=== PATIENT | female | born 1975 | race Caucasian/White ===

== ENCOUNTER 2018-09-17 08:15 | Emergency (ER) | payer MEDICARE, MEDICAID ==
[~2018-09-17] VITALS: Ht 167.6 cm; Wt 93.6 kg
[~2018-09-17 08:15] MED LIST: ATOR20TA66 PO; BACL10TA PO; CARB1TAB42 PO; FENO134C PO; GABA300S; HYDR-4353 PO; LORA1TAB PO; LOSA25TA96 PO; LURA120T PO; LURA40TA3 PO; METF500T PO; PRAZ2CAP2 PO; TRAZ-219 PO
[2018-09-17] MEDS ORDERED: metroNIDAZOLE-Flagyl 500mg/NS 100 ML IV STA (09:26)
[2018-09-17] MEDS ORDERED: dexamethasone sod phosphate 10mg/ml inj IV STA (09:26)
[2018-09-17] MEDS ORDERED: clindamycin-Cleocin 900mg/D5W 50 ML IV ONE (09:30)
[2018-09-17] MEDS ORDERED: normal saline 1000ML IV soln IV ONE (09:30)
[2018-09-17 09:57] LABS: BASOPHILS # (AUTO) 0.1 X10'3 (0-0.2); BASOPHILS % (AUTO) 0.7 % (0-1); EOSINOPHILS # (AUTO) 0.1 X10'3 (0-0.9); EOSINOPHILS % (AUTO) 0.4 % (0-6); HEMATOCRIT 51.8 % (35.0-45.0); HEMOGLOBIN 17.3 g/dl (12.0-16.0); LYMPHOCYTES # (AUTO) 2.2 X10'3 (1.1-4.8); LYMPHOCYTES % (AUTO) 14.8 % (21-51); MEAN CORPUSCULAR HEMOGLOBIN 29.8 PG (27.0-31.0); MEAN CORPUSCULAR HGB CONC 33.5 g/dL (33.0-36.5); MEAN CORPUSCULAR VOLUME 88.9 FL (78-98); MEAN PLATELET VOLUME 8.1 FL (7.4-10.4); MONOCYTES # (AUTO) 1.1 X10'3 (0-0.9); MONOCYTES % (AUTO) 7.5 % (2-12); NEUTROPHILS # (AUTO) 11.4 X10'3 (1.8-7.7); NEUTROPHILS % (AUTO) 76.6 % (42-75); PLATELET COUNT 231 X10'3 (140-440); RED BLOOD COUNT 5.83 X10'6 (4.20-5.60); RED CELL DISTRIBUTION WIDTH 13.7 % (11.5-14.5); WHITE BLOOD COUNT 14.9 X10'3 (4.5-11.0)
[2018-09-17 10:07] LABS: ALANINE AMINOTRANSFERASE 8 U/L (12-78); ALBUMIN 4.2 G/DL (3.4-5.0); ALBUMIN/GLOBULIN RATIO 1.1 (1.1-1.5); ALKALINE PHOSPHATASE 122 IU/L (46-116); ANION GAP 14 (8-16); ASPARTATE AMINO TRANSFERASE 10 U/L (10-37); BILIRUBIN,TOTAL 0.6 MG/DL (0.1-1.0); BLOOD UREA NITROGEN 10 MG/DL (7-18); BUN/CREATININE RATIO 13.9 (6.6-38.0); CALCIUM 9.7 MG/DL (8.5-10.1); CHLORIDE 99 MMOL/L (99-107); CREATININE 0.72 MG/DL (0.40-0.90); GLUCOSE 287 MG/DL (70-104); MAGNESIUM 1.9 MG/DL (1.5-2.4); SODIUM 135 MMOL/L (135-145); TOTAL CARBON DIOXIDE 22.5 MMOL/L (24-32); TOTAL PROTEIN 8.1 G/DL (6.4-8.2); eGFR 88 ML/MIN
[2018-09-17] MEDS ORDERED: iohexol 300mg/ml 100ml inj. ONE (10:13)
[2018-09-17 10:34] LABS: INR 0.9 INR; PARTIAL THROMBOPLASTIN TIME 28 SECONDS (22-32); PROTHROMBIN TIME 9.4 SECONDS (9.0-12.0)
[2018-09-17] MEDS ORDERED: morphine 4 MG/ML inj SYRINge IV ONE (11:05)
[2018-09-17] MEDS ORDERED: ondansetron/PF 4mg/2ml inj IV ONE (11:05)
[2018-09-17 11:46] LABS: URINE HCG NEGATIVE (NEG)
--- NOTE | 2018-09-17 12:09 | NUR ---
CT DISC REQUESTED FOR TRANSFER
[2018-09-17 12:16] VITALS: BP 173/93
== END 2018-09-17 13:04 | disposition short-term general hospital (02) ==
LOC: ER 08:16
DX: K04.7 Periapical abscess without sinus (principal); L03.211 Cellulitis of face; R59.1 Generalized enlarged lymph nodes; E11.65 Type 2 diabetes mellitus with hyperglycemia; G20 Parkinson's disease; E78.00 Pure hypercholesterolemia, unspecified; I10 Essential (primary) hypertension; Z79.4 Long term (current) use of insulin; Z91.14 Patient's other noncompliance with medication regimen; G89.29 Other chronic pain; Z79.899 Other long term (current) drug therapy
CPT/HCPCS: 36415; 70491; 80053; 81025; 83605; 83735; 84145; 85025; 85610; 85730; 87040; 96365; 96367; 96375; 99285; J1100; J2270; J2405; J3490; J7030; Q9967

== ENCOUNTER 2018-11-10 07:55 | Emergency (ER) | payer MEDICARE, MEDICAID ==
[~2018-11-10] VITALS: Ht 167.6 cm; Wt 95.5 kg
[2018-11-10] MEDS ORDERED: HYDR-4353 PO (08:37)
[2018-11-10] MEDS ORDERED: HYDROcodone/acetaminophen 10/325mg tab PO ONE (08:40)
[2018-11-10 08:50] VITALS: BP 136/96
== END 2018-11-10 08:52 | disposition home or self-care (01) ==
LOC: ER 07:55
DX: S60.212A Contusion of left wrist, initial encounter (principal); I10 Essential (primary) hypertension; E11.9 Type 2 diabetes mellitus without complications; G89.29 Other chronic pain; F17.200 Nicotine dependence, unspecified, uncomplicated; F12.90 Cannabis use, unspecified, uncomplicated; Z79.84 Long term (current) use of oral hypoglycemic drugs; Z79.899 Other long term (current) drug therapy; X58.XXXA Exposure to other specified factors, initial encounter; Y93.89 Activity, other specified; Y92.89 Other specified places as the place of occurrence of the external cause; Y99.8 Other external cause status
CPT/HCPCS: 29125; 73110; 99283

== ENCOUNTER 2019-01-13 09:23 | Emergency (ER) | payer MEDICARE, MEDICAID ==
[~2019-01-13] VITALS: Ht 167.6 cm; Wt 90.3 kg
[~2019-01-13 09:23] MED LIST changes: +MINO100T PO
[2019-01-13 09:28] VITALS: BP 163/76
[2019-01-13] MEDS ORDERED: CYCL-1 PO (10:12)
== END 2019-01-13 10:25 | disposition home or self-care (01) ==
LOC: ER 09:23
DX: M79.602 Pain in left arm (principal); M54.2 Cervicalgia; M54.9 Dorsalgia, unspecified; G89.29 Other chronic pain; G20 Parkinson's disease; I10 Essential (primary) hypertension; E11.9 Type 2 diabetes mellitus without complications; F12.90 Cannabis use, unspecified, uncomplicated; Z79.84 Long term (current) use of oral hypoglycemic drugs; Z79.899 Other long term (current) drug therapy
CPT/HCPCS: 99283

== ENCOUNTER 2019-04-05 08:07 | Emergency (ER) | payer MEDICARE, MEDICAID ==
[~2019-04-05] VITALS: Ht 167.6 cm; Wt 89.9 kg
[~2019-04-05 08:07] MED LIST changes: +CYCL-1 PO
[2019-04-05] MEDS ORDERED: LOSA25TA96 PO (08:52)
[2019-04-05 09:05] VITALS: BP 153/70
== END 2019-04-05 09:07 | disposition home or self-care (01) ==
LOC: ER 08:07
DX: N61.1 Abscess of the breast and nipple (principal); I10 Essential (primary) hypertension; G20 Parkinson's disease; E11.9 Type 2 diabetes mellitus without complications; G89.29 Other chronic pain; F31.9 Bipolar disorder, unspecified; F17.200 Nicotine dependence, unspecified, uncomplicated; F12.90 Cannabis use, unspecified, uncomplicated; Z79.84 Long term (current) use of oral hypoglycemic drugs; Z79.899 Other long term (current) drug therapy
CPT/HCPCS: 99283

== ENCOUNTER 2020-05-05 07:48 | Emergency (ER) | payer MEDICARE, MEDICAID ==
[~2020-05-05] VITALS: Ht 167.6 cm; Wt 92.4 kg
[~2020-05-05 07:48] MED LIST changes: -TRAZ-219 PO; +TRAZ-256 PO
[2020-05-05] MEDS ORDERED: cyclobenzaprine 10mg tablet PO ONE (09:25)
[2020-05-05] MEDS ORDERED: HYDROcodone/acetaminophen 5mg/325mg tablet PO ONE (09:25)
[2020-05-05] MEDS ORDERED: ketorolac trometh inj. 60 MG/2 ML VIAL IM ONE (09:25)
--- NOTE | 2020-05-05 09:25 | NUR ---
Pt's mother, Shefali Estrada'nai cell phone is [phone]
[2020-05-05 10:19] VITALS: BP 117/73
[2020-05-05] MEDS ORDERED: CYCL-1 PO (10:35)
== END 2020-05-05 10:44 | disposition home or self-care (01) ==
LOC: ER 07:49
DX: M54.9 Dorsalgia, unspecified (principal); G20 Parkinson's disease; I10 Essential (primary) hypertension; J45.909 Unspecified asthma, uncomplicated; E11.9 Type 2 diabetes mellitus without complications; F31.9 Bipolar disorder, unspecified; G89.29 Other chronic pain; F17.200 Nicotine dependence, unspecified, uncomplicated; Z79.899 Other long term (current) drug therapy; W18.39XA Other fall on same level, initial encounter; Y93.89 Activity, other specified; Y92.89 Other specified places as the place of occurrence of the external cause; Y99.8 Other external cause status
CPT/HCPCS: 72070; 96372; 99284; J1885

== ENCOUNTER 2020-05-24 10:14 | Emergency (ER) | payer MEDICARE, MEDICAID ==
[~2020-05-24] VITALS: Ht 167.6 cm; Wt 92.2 kg
[2020-05-24] MEDS ORDERED: CEPH250T PO (11:05)
[2020-05-24] MEDS ORDERED: BACDS PO (11:05)
== END 2020-05-24 11:22 | disposition home or self-care (01) ==
LOC: ER 10:15
DX: L02.31 Cutaneous abscess of buttock (principal); I10 Essential (primary) hypertension; J45.909 Unspecified asthma, uncomplicated; E11.9 Type 2 diabetes mellitus without complications; G89.29 Other chronic pain; Z88.6 Allergy status to analgesic agent; Z79.899 Other long term (current) drug therapy
CPT/HCPCS: 99283

== ENCOUNTER 2021-06-07 09:25 | Emergency (ER) | payer MEDICARE, MEDICAID ==
[~2021-06-07] VITALS: Ht 167.6 cm; Wt 85.2 kg
[2021-06-07 09:43] VITALS: BP 132/84
[2021-06-07] MEDS ORDERED: LIDOcaine 1% W/epiNEPHrine 1:200,000 10ml vial IJ ONE (14:05)
[2021-06-07] MEDS ORDERED: LIDOcaine 1% W/epiNEPHrine 1:100,000 20ml vial SQ ONE (14:20)
[2021-06-07] MEDS ORDERED: CIPR-208 PO (14:50)
[2021-06-07] MEDS ORDERED: METR-159 PO (14:50)
[2021-06-07] MEDS ORDERED: HYDR-3972 PO (14:50)
== END 2021-06-07 15:48 | disposition home or self-care (01) ==
LOC: ER 09:25
DX: L02.31 Cutaneous abscess of buttock (principal); I10 Essential (primary) hypertension; J45.909 Unspecified asthma, uncomplicated; E11.9 Type 2 diabetes mellitus without complications; G89.29 Other chronic pain; F31.9 Bipolar disorder, unspecified; Z88.6 Allergy status to analgesic agent; Z79.899 Other long term (current) drug therapy
CPT/HCPCS: 10060; 99283

== ENCOUNTER 2021-06-17 13:11 | Emergency (ER) | payer MEDICARE, MEDICAID ==
[~2021-06-17 13:11] MED LIST changes: +CIPR-208 PO; +METR-159 PO
== END 2021-06-17 15:00 | disposition left against medical advice (07) ==
LOC: ER 13:12
DX: L02.91 Cutaneous abscess, unspecified (principal); Z53.21 Procedure and treatment not carried out due to patient leaving prior to being seen by health care provider

== ENCOUNTER 2022-11-04 08:40 | Emergency (ER) | payer MEDICARE, MEDICAID ==
[~2022-11-04] VITALS: Ht 167.6 cm; Wt 82.0 kg
[~2022-11-04 08:40] MED LIST changes: -CIPR-208 PO; -FENO134C PO; +FENO134C21 PO; -GABA300S; +GABA300S3; +LURA40TA2 PO; -LURA40TA3 PO; -METR-159 PO
[2022-11-04] MEDS ORDERED: PERM60CR19 TOP (09:29)
[2022-11-04 09:40] VITALS: BP 96/67
== END 2022-11-04 09:41 | disposition home or self-care (01) ==
LOC: ER 08:40
DX: B86 Scabies (principal); I10 Essential (primary) hypertension; J45.909 Unspecified asthma, uncomplicated; E11.9 Type 2 diabetes mellitus without complications; G89.29 Other chronic pain; M54.9 Dorsalgia, unspecified; F31.9 Bipolar disorder, unspecified; Z88.6 Allergy status to analgesic agent; Z79.899 Other long term (current) drug therapy; Z79.1 Long term (current) use of non-steroidal anti-inflammatories (NSAID); Z79.2 Long term (current) use of antibiotics
CPT/HCPCS: 99284

== ENCOUNTER 2023-05-01 08:46 | Emergency (ER) | payer MEDICARE, MEDICAID ==
[~2023-05-01] VITALS: Ht 167.6 cm; Wt 79.5 kg
[~2023-05-01 08:46] MED LIST changes: +LOSA-415 PO; -LOSA25TA96 PO; +PERM60CR19 TOP
--- NOTE | 2023-05-01 09:21 | NUR ---
[facility] [employer]
[2023-05-01] MEDS ORDERED: HYDR-3973 PO (09:22)
[2023-05-01 09:38] VITALS: BP 99/64; PULSE 64; RESP 16; O2SAT 98
[2023-05-01 09:40] VITALS: TEMP 98.2
== END 2023-05-01 09:43 | disposition home or self-care (01) ==
LOC: ER 08:47
DX: M25.461 Effusion, right knee (principal); M25.561 Pain in right knee; I10 Essential (primary) hypertension; J45.909 Unspecified asthma, uncomplicated; E11.9 Type 2 diabetes mellitus without complications; F31.9 Bipolar disorder, unspecified; Z88.5 Allergy status to narcotic agent; Z79.1 Long term (current) use of non-steroidal anti-inflammatories (NSAID); Z79.899 Other long term (current) drug therapy
CPT/HCPCS: 73564; 99284